=== PATIENT | male | born 1965 | race Caucasian/White ===

== ENCOUNTER → 2024-07-08 08:33 | Outpatient (REF) | payer BC, SELFPAY ==
[2024-07-08 09:39] LABS: % Immature Granulocytes 0.2 % (0-0.5); % Lymphocytes 48.7 % (20.5-51.1); % Monocytes 7.9 % (1.7-9.3); % Neutrophils 39.2 % (42.2-75.2); Absolute Basophils 0.1 10^3/uL (0-0.2); Absolute Eosinophils 0.2 10^3/uL (0-0.7); Absolute Lymphocytes 2.9 10^3/uL (1.2-3.4); Absolute Monocytes 0.5 10^3/uL (0.1-0.6); Absolute Neutrophils 2.3 10^3/uL (1.4-6.5); Hematocrit 44.9 % (39.0-52.0); Hemoglobin 15.4 g/dL (13.0-18.0); Mean Corp Hgb Conc. 34.3 g/dL (33.0-37.0); Mean Corpuscular Volume 90.3 fL (80.0-94.0); Mean Platelet Volume 9.1 fL (7.4-10.4); Nucleated Red Blood Cells % 0 % (-); Platelet Count 216 10^3/uL (130-400); Red Blood Cell Count 4.97 10^6/uL (4.70-6.10); Red Cell Dist. Width 12.1 % (11.5-14.5); White Blood Cell Count 5.9 10^3/uL (4.8-10.8)
[2024-07-08 10:15] LABS: Blood Urea Nitrogen 21 mg/dl (9-20); Calcium 9.2 mg/dl (8.4-10.2); Carbon Dioxide 28 mmol/L (22-30); Chloride 103 mmol/L (98-107); Glucose 102 mg/dl (70-99); Sodium 141 mmol/L (135-145); eGFR > 60.00
== END ==
LOC: HWLAB 08:33
PROVIDERS: ATTENDING PHYSICIAN Orthopaedic Surgery; FAMILY PHYSICIAN Internal Medicine
DX: Z01.818 Encounter for other preprocedural examination (principal)
CPT/HCPCS: 36415; 80048; 85025; 93005

== ENCOUNTER 2025-06-29 14:04 | Emergency (ER) | payer BC, SELFPAY ==
[2025-06-29 14:06] VITALS: BP 185/99
--- NOTE | 2025-06-29 14:55 | ED.MUSCINJ ---
HPI-Injury
General
Chief Complaint: Musculo-Skeletal Complaint
Source: patient
Exam Limitations: none
Time Seen by Provider: 06/29/25 14:46
Nursing documentation reviewed up to this point in time: agreed with
History of Present Illness-Injury
Is this injury a work related problem?: No
Is pt an associate of [facility]/[place]?: No
Initial Injury comments:
Patient to the emergency department for evaluation of injury to his left distal fourth finger. Patient states he hit the finger while hammering. Incident occurred just prior to arrival. He reports pain swelling bleeding and displacement of the
distal left fourth fingernail. Td is up-to-date
Past History
Past History
ED Past Medical History: GERD and Other (Chronic sinusitis, irritable bowel disease )
ED Past Surgical History: Other (Endoscopic sinus surgery )
Social History
Tobacco: Non-smoker
Alcohol: Occasional
Drug: None
Personal:
Living: with family
Employment: Employed
Family History
Family History: CAD and Cancer (Mother of lung cancer )
Review of Systems
Review of Systems
Allergies reviewed?: Yes
All Other Systems: ROS reviewed and negative except as documented in HPI and ROS
Constitutional: Reports no symptoms
Musculoskeletal: Reports joint pain (Pain to left distal fourth finger)
Skin: Reports other (Pain swelling bleeding and displacement of the left distal fourth finger nail.)
Neurological: Reports no symptoms
Psychiatric: Reports no symptoms
Musculoskeletal Injury Exam
Musculoskeletal Injury Exam
Left Distal Fourth Finger:
Pain with Movement?: Moderate
Tender to palpation?: Moderate
Soft tissue swelling?: Moderate
External deformity and angulation?: Mild
Joint effusion?: None
Contusion?: Moderate
Hematoma-local bleeding into tissue?: Moderate
Strain- Sprain- Tear (Connective tissue injury)?: None
Crepitus with movement?: No
Joint instability?: No
Malalignment/deformity?: No
Range of motion: Limited
Distal skin color and temperature: normal-warm & good color
Capillary Refill: normal
Normal distal neurovascular exam?: Yes
Peripheral Pulses: radial (left): 3+
Phy Exam
General Physical Exam
General Presentation: mild distress
General age: appears stated age
General Skin: warm and dry
General Habitus: normal
General Mental: alert
Musculoskeletal Exam
Musculoskeletal Exam: full ROM and neuro vasc intact
Skin Exam
Skin Exam: normal color, warm/dry and no rash
Psychiatric Exam
Psychiatric Exam: normal mood/affect
Injury Course
Orders/Labs/Results
Orders:
Orders
06/29/25 14:31
Finger(s)/Thumb 2 View Lt [CR Finger(s)/thumb Min 2 Vw Lt] Urgent
Comment:
Reason For Exam: pain injury
Indicate Which Finger:: Ring Finger
06/29/25 15:13
Cephalexin Monohydrate [Keflex] 500 mg PO NOW STA
06/29/25 15:18
Aluminium Finger Splint Left ONCE
*Radiology
Radiology exam reviewed: preliminary read by ED provider (Fracture to the distal phalanx of the left fourth finger)
*Pulse Oximetry
SaO2: 96
Oxygen Mode of Delivery: Room air
Patient hypoxic: no
*Critical Care Note
Total Time (30-74mins, 75-104mins- exclusive of procedures): Not Applicable
Update Note
Update Note:
Patient to the emergency department for evaluation of an injury to his left distal fourth finger. He states he hit the finger with a hammer while working today. He sustained a partial nail avulsion to the left distal fourth finger. He has
bruising and swelling to the left distal fourth finger. X-ray reviewed, confirms fracture to the distal phalanx of the left fourth finger. Digital block with lidocaine 1%. Finger soaked in peroxide and saline. A avulsed nail was repositioned
back into place. Secured with Steri-Strips. A small hole was placed in the nail with a hot tip cautery to allow for subungual blood to drain. Dressing and finger splint applied by nursing. He will be placed on Keflex 500 mg p.o. twice daily for
1 week. He was advised to follow-up with his family doctor in 2 to 3 days.
ED Attending Note
-
Portions of this chart may have been created with voice recognition software.� Occasional wrong word or��sound alike� substitutions may have occurred due to the inherent limitations of voice recognition software.
Discharge Plan
Departure
Patient Disposition: Home (Routine Discharge)
Date of Disposition: 06/29/25
Time of Disposition: 15:15
Patient with high blood pressure during this ER visit?: No
Condition: Good
Covid-19: Not Applicable
Discharge Problem:
Crush injury to finger, Avulsion of nail, Finger fracture
Instructions: Ibuprofen, Nail Avulsion (DC), Using Cold for Pain, Finger Fracture ED
Prescriptions:
New
cephalexin 500 mg capsule
500 mg PO BID 7 Days Qty: 14 0RF
No Action
loratadine [Claritin] 10 mg Tablet
10 mg PO DAILY PRN (Reason: allergies)
aspirin 81 mg Tablet,Delayed Release (Dr/Ec)
81 mg PO DAILY 180 Days Qty: 180 0RF
atorvastatin 40 mg Tablet
40 mg PO QPM 30 Days Qty: 30 0RF
amlodipine 2.5 mg Tablet
2.5 mg PO DAILY 30 Days Qty: 30 0RF
Referrals:
Autumn Seals MD [Family Provider, Internal Medicine] - Follow up in 2-3 days
Interventions
Interventions:
*Risk Screen - Suicide Last Done: 06/29/25 14:05
*General Assessment Last Done: 06/29/25 14:06
*Neglect/Abuse Screening Last Done: 06/29/25 14:06
Discharge Date and Time
Print Language: ANGUILLAN
[2025-06-29] MEDS: KEFLEX 500 MG PO (15:38)
== END 2025-06-29 15:40 | disposition home or self-care (01) ==
LOC: EMR 14:04
PROVIDERS: EMERGENCY PHYSICIAN Emergency Medicine; FAMILY PHYSICIAN Internal Medicine
DX: S67.195A Crushing injury of left ring finger, initial encounter (principal); S62.635B Displaced fracture of distal phalanx of left ring finger, initial encounter for open fracture; W23.0XXA Caught, crushed, jammed, or pinched between moving objects, initial encounter; K21.9 Gastro-esophageal reflux disease without esophagitis
CPT/HCPCS: 99283; 73140